=== PATIENT | female | born 1970 | race Caucasian/White ===

== ENCOUNTER 2019-02-17 15:09 | Inpatient (IN) | payer OTHER ==
[2019-02-17 15:52] VITALS: BMI 26.3
--- NOTE | 2019-02-17 17:57 | HP ---
"CIWA Score Nausea/Vomitin-Int. Nausea w/Dry Heave Muscle Tremors: 4-Moderate,w/Arms Extend Anxiety: 0-No Anxiety, at Ease Agitation: 4-Moderately Restless Paroxysmal Sweats: No Perspiration Orientation: 0-Oriented Tacttile Disturbances: 0-None Auditory Disturbances: 0-None Visual Disturbances: 0-None Headache: 0-None Present CIWA-Ar Total Score: 12 - Admission Criteria OASAS Guidelines: Admission for Medically Managed Detox: Requires at least one of the followin. CIWA greater than 12 2. Seizures within the past 24 hours 3. Delirium tremens within the past 24 hours 4. Hallucinations within the past 24 hours 5. Acute intervention needed for co occurring medical disorder 6. Acute intervention needed for co occurring psychiatric disorder 7. Severe withdrawal that cannot be handled at a lower level of care (continued vomiting, continued diarrhea, abnormal vital signs) requiring intravenous medication and/or fluids 8. Admission [facility] - [facility] Allergies/Adverse Reactions: Allergies Allergy/AdvReac Type Severity Reaction Status Date / Time No Known Allergies Allergy Verified 02/17/19 18:09 History of Present Illness: Search Terms: maureen hamlin, 1970 Search Date: 02/17/2019 05:51:03 PM The Drug Utilization Report below displays all of the controlled substance prescriptions, if any, that your patient has filled in the last twelve months. The information displayed on this report is compiled from pharmacy submissions to the Department, and accurately reflects the information as submitted by the pharmacies. This report was requested by: Shae Carter | Reference #: [id number] There are no results for the search terms that you entered. pt here requesting detox since age 32 , daily since 42's , currently 3 pints of vodka , occasionally beer as well , starts drinking in the morning to stop withdrawal symptoms, reports tremors , vomiting if not drinking, denies blackouts, had a fall while intoxicated 3 years ago had suture to head laceration , latest use today reports 10 am today , current BUCK 0.342 , brought in by delivery driver , in facility waiting area . denies illicts tobacco : denies PMHX : asthma dx childhood ( hospitalized in childhood, never intubated ), heart murmur ( PFO ) PShx : C-sx 1 , LMP 01/28/19 upt neg Psych : bipolar d/o - on Risperidone and Trazodone , denies current and past SI / HI Shx : lives w/ in half-way , on SSI for MH . 2 children ages 28 , and 18 lives w/ bio [employer] . Exam Limitations: Clinical Condition, Intoxication - Ebola screening Have you traveled outside of the country in the last 21 days: No Have you had contact with anyone from an Ebola affected area: No Have you been sick,other than usual withdrawal symptoms: No - Review of Systems Constitutional: See HPI EENT: reports: See HPI, Odynophagia Respiratory: reports: See HPI Cardiac: reports: No Symptoms Reported GI: reports: See HPI : reports: No Symptoms Reported Musculoskeletal: reports: No Symptoms Reported Integumentary: reports: Sweating Neuro: reports: Tremors, Unsteady Gait Endocrine: reports: No Symptoms Reported Psychiatric: reports: Orientated x3, Agitated Patient History - Patient Medical History Hx Anemia: No Hx Asthma: Yes Hx Chronic Obstructive Pulmonary Disease (COPD): No Hx Cancer: No Hx Cardiac Disorders: Yes (heart murmur) Hx Congestive Heart Failure: No Hx Hypertension: No Hx Hypercholesterolemia: No Hx Pacemaker: No HX Cerebrovascular Accident: No Hx Seizures: No Hx Dementia: No Hx Diabetes: No Hx Gastrointestinal Disorders: No Hx Liver Disease: No Hx Genitourinary Disorders: No Hx Sexually Transmitted Disorders: Yes (syphilis) Hx Renal Disease (ESRD): No Hx Thyroid Disease: No Hx Human Immunodeficiency Virus (HIV): No Hx Hepatitis C: No Hx Depression: Yes Hx Suicide Attempt: No Hx Bipolar Disorder: No Hx Schizophrenia: No - Patient Surgical History Past Surgical History: Yes Hx Neurologic Surgery: No Hx Cataract Extraction: No Hx Cardiac Surgery: No Hx Lung Surgery: No Hx Breast Surgery: No Hx Breast Biopsy: No Hx Abdominal Surgery: No Hx Appendectomy: No Hx Cholecystectomy: No Hx Genitourinary Surgery: No Hx Section: Yes (x 1) Hx Orthopedic Surgery: No Anesthesia Reaction: No - PPD History Date: 04/20/16 Results: 0 mm - Reproductive History Last Menstrual Period: 03/26/16 - Smoking Cessation Smoking history: Never smoked Have you smoked in the past 12 months: No Hx Chewing Tobacco Use: No - Substances Abused Alcohol Route: Oral Frequency: Daily Amount used: LIQUOR- 3 PINTS Age of first use: 19 Date of Last Use: 02/17/19 Family Disease History - Family Disease History Family Disease History: Diabetes: Mother (HTN), Brother (ALCOHOL), Heart Disease : Mother, Other: Father (ALCOHOL), Brother Admission Physical Exam S - Vital Signs Vital Signs: Vital Signs - 24 hr 02/17/19 15:49 Temperature 98.0 F Pulse Rate 83 Respiratory 20 Rate Blood Pressure 145/93 - Physical General Appearance: Yes: Disheveled, Moderate Distress HEENTM: Yes: EOMI, Hearing grossly Normal, Normocephalic, Normal Voice, Other ( poor dentition , caries and missing teeth) Respiratory: Yes: Chest Non-Tender, Lungs Clear, Normal Breath Sounds Neck: Yes: No masses,lesions,Nodules, Trachea in good position Cardiology: Yes: Regular Rhythm, Regular Rate, S1, S2, Tachycardia Abdominal: Yes: Non Tender, Soft Back: Yes: Normal Inspection Musculoskeletal: Yes: Other Extremities: Yes: Non-Tender, Tremors Neurological: Yes: Motor Strength 5/5, Depressed Affect Integumentary: Yes: Warm - Diagnostic (1) Alcohol intoxication Current Visit: Yes Status: Acute Qualifiers: Complication of substance-induced condition: uncomplicated Qualified Code(s ): F10.920 - Alcohol use, unspecified with intoxication, uncomplicated (2) Alcohol dependence with uncomplicated withdrawal Current Visit: Yes Status: Acute [facility] Breath Alcohol Content Breath Alcohol Content: 0.342 Urine Pregancy Test - Result Urine Test Results: Negative - NO line present Urine Drug Screen - Results Drug Screen Negative: No Urine Drug Screen Results: BZO-Benzodiazepines Inpatient Rehab Admission - Rehab Decision to Admit Inpatient rehab admission?: No"
[2019-02-17] MEDS ORDERED: TRIMETHOBENZAMIDE HCL 200MG/2ML INJ IM ONE (20:37)
--- NOTE | 2019-02-17 20:39 | PN ---
[facility] Progress Note Note: Patient vomited x 1 Vital Signs Temperature 98.0 F 02/17/19 15:49 Pulse Rate 83 02/17/19 15:49 Respiratory Rate 20 02/17/19 15:49 Blood Pressure 145/93 02/17/19 15:49 O2 Sat by Pulse Oximetry (%) Action: Tigan 200mg intramuscular ordered
[2019-02-17] MEDS ORDERED: hydrOXYzine PAMOATE 25 MG CAPSULE (FP) PO PRN (22:56)
[2019-02-17] MEDS ORDERED: MAGNESIUM HYDROX 2400MG/30ML ORAL SUSPENSION 30 ML CUP PO PRN (22:56)
[2019-02-17] MEDS ORDERED: METHOCARBAMOL 500 MG TABLET PO PRN (22:56)
[2019-02-17] MEDS ORDERED: MAGNESIUM CITRATE 300 ML BOTTLE PO PRN (22:56)
[2019-02-17] MEDS ORDERED: NICOTINE POLACRILEX 2 MG GUM BUC PRN (22:56)
[2019-02-17] MEDS ORDERED: BISMUTH SUBSALICYLATE 524 MG/30 ML UD PO PRN (22:56)
[2019-02-17] MEDS ORDERED: MAG HYDROX/AL HYDROX/SIMETH 30 ML UNIT-DOSE CUP PO PRN (22:56)
[2019-02-17] MEDS ORDERED: ACETAMINOPHEN 325 MG TABLET (FP) PO PRN ×2 (22:56)
[2019-02-17] MEDS ORDERED: IBUPROFEN 400 MG TABLET (FP) PO PRN (22:56)
[2019-02-17] MEDS ORDERED: MENTHOL/PHENOL 1 EACH UD MM PRN (22:56)
[2019-02-17] MEDS: chlordiazePOXIDE HCL 25 MG CAPSULE PO SCH (23:40)
[2019-02-17] MEDS: ALBUTEROL SO4 8 GM HFA INHALER IH SCH (23:41)
[2019-02-18] MEDS: chlordiazePOXIDE HCL 10 MG CAPSULE PO PRN ×3 (02:25→18:12)
[2019-02-18] MEDS: ALBUTEROL SO4 8 GM HFA INHALER IH SCH ×5 (03:09→22:42)
[2019-02-18] MEDS: chlordiazePOXIDE HCL 25 MG CAPSULE PO SCH ×2 (04:54→14:55)
[2019-02-18] MEDS ORDERED: cloNIDine HCL 0.1 MG TABLET PO ONE (07:45)
--- NOTE | 2019-02-18 07:53 | PN ---
S Progress Note Note: Patient's blood pressure is B/P 156/101. Patient is asymptomatic Vital Signs Temperature 97.9 F 02/18/19 07:49 Pulse Rate 87 02/18/19 07:49 Respiratory Rate 18 02/18/19 07:49 Blood Pressure 156/101 H 02/18/19 07:49 O2 Sat by Pulse Oximetry (%) ACTION: Clonidine 0.1mg 1 tablet oral daily
[2019-02-18] MEDS: PRENATAL VITAMINS W/ FOLIC ACID TABLET (FP) PO SCH (09:30)
[2019-02-18] MEDS ORDERED: ONDANSETRON *ODT* 4 MG TABLET SL ONE (10:03)
[2019-02-18] MEDS ORDERED: chlordiazePOXIDE HCL 25 MG CAPSULE PO ONE (10:05)
--- NOTE | 2019-02-18 10:23 | PN ---
S CIWA - CIWA Score Nausea/Vomitin Muscle Tremors: 4-Moderate,w/Arms Extend Anxiety: 4-Mod. Anxious/Guarded Agitation: 4-Moderately Restless Paroxysmal Sweats: 2 Orientation: 1-Uncertain about Date Tacttile Disturbances: 0-None Auditory Disturbances: 0-None Visual Disturbances: 0-None Headache: 0-None Present CIWA-Ar Total Score: 17 S Progress Note (SOAP) Subjective: patient admitted with alexis 0.354 had librium and tigan for alcohol withdrawal and vomiting vomited x 1 unable to tolerate food but fluid zofran 8 mg sl x 1 librium 50 mg po x 1 dose provide therapeutic environment for resting and safety Objective: 02/18/19 10:23 Vital Signs Temperature 98.7 F 02/18/19 09:16 Pulse Rate 90 02/18/19 09:16 Respiratory Rate 18 02/18/19 09:16 Blood Pressure 155/82 02/18/19 09:16 O2 Sat by Pulse Oximetry (%) lab pending Assessment: 02/18/19 10:24 alcohol withdrawal sx 02/18/19 10:24 hypertension Plan: continue detox begin lisinopril 10 mg po bid
[2019-02-18 10:43] LABS: HEMATOCRIT 36.3 % (32.4-45.2); HEMOGLOBIN 12.2 GM/dL (10.7-15.3); MCHC 33.5 g/dl (32.0-36.0); MEAN CELL VOLUME 98.4 fl (80-96); MEAN PLT VOLUME 8.8 fl (7.5-11.1); PLATELET COUNT 104 K/MM3 (134-434); RBC 3.69 M/mm3 (3.60-5.2); RDW 14.4 % (11.6-15.6); WHITE BLOOD COUNT 4.5 K/mm3 (4.0-10.0)
[2019-02-18 11:02] LABS: ALBUMIN 3.7 g/dl (3.4-5.0); ALK PHOS 103 U/L (45-117); ANION GAP 11 MMOL/L (8-16); BILIRUBIN,TOTAL 0.7 mg/dL (0.2-1); BLOOD UREA NITROGEN 6 mg/dL (7-18); CALCIUM 7.8 mg/dL (8.5-10.1); CHLORIDE 100 mmol/L (98-107); CO2 25 mmol/L (21-32); CREATININE 0.4 mg/dL (0.55-1.3); GLUCOSE,RANDOM 77 mg/dL (74-106); POTASSIUM 3.4 mmol/L (3.5-5.1); SGOT/AST 35 U/L (15-37); SGPT/ALT 25 U/L (13-61); SODIUM 136 mmol/L (136-145); TOT PROT 7.7 g/dl (6.4-8.2)
[2019-02-18] MEDS: LISINOPRIL 10 MG TABLET (FP) PO SCH ×2 (11:05→22:43)
[2019-02-18] MEDS: NICOTINE 14 MG/24 HOURS TOPICAL PATCH TD SCH (11:06)
[2019-02-18 12:17] LABS: RPR REACTIVE 1:4 (NONREACTIVE)
[2019-02-18 12:18] LABS: TREPONEMA ANTIBODY PREVIOUSLY REACTIVE (NONREACTIVE)
[2019-02-18] MEDS: cloNIDine HCL 0.1 MG TABLET PO PRN (18:12)
[2019-02-18] MEDS: THIAMINE HCL 100 MG TABLET (FP) PO SCH (22:42)
[2019-02-18] MEDS: chlordiazePOXIDE 5 MG CAPSULE PO SCH (22:42)
[2019-02-18] MEDS: ONDANSETRON *ODT* 4 MG TABLET SL PRN (22:43)
[2019-02-18] MEDS: MELATONIN 5 MG TABLETS PO PRN (22:44)
[2019-02-19] MEDS: chlordiazePOXIDE 5 MG CAPSULE PO SCH ×2 (05:17→13:33)
[2019-02-19] MEDS: ONDANSETRON *ODT* 4 MG TABLET SL PRN ×3 (05:19→17:51)
[2019-02-19] MEDS: ALBUTEROL SO4 8 GM HFA INHALER IH SCH ×5 (06:14→23:15)
[2019-02-19] MEDS: PRENATAL VITAMINS W/ FOLIC ACID TABLET (FP) PO SCH (10:23)
[2019-02-19] MEDS: LISINOPRIL 10 MG TABLET (FP) PO SCH ×2 (10:23→22:30)
[2019-02-19] MEDS: chlordiazePOXIDE HCL 10 MG CAPSULE PO PRN ×2 (10:23→19:46)
[2019-02-19] MEDS: NICOTINE 14 MG/24 HOURS TOPICAL PATCH TD SCH (10:23)
--- NOTE | 2019-02-19 18:06 | PN ---
S CIWA - CIWA Score Nausea/Vomitin Muscle Tremors: 4-Moderate,w/Arms Extend Anxiety: 3 Agitation: 1-Slight > Activity Paroxysmal Sweats: No Perspiration Orientation: 0-Oriented Tacttile Disturbances: 1-Very Mild Itch/Numbness Auditory Disturbances: 0-None Visual Disturbances: 1-Very Mild Sensitivity Headache: 0-None Present CIWA-Ar Total Score: 15 S Progress Note (SOAP) Subjective: Vomiting, Tremors, Anxious. Objective: PATIENT A & O X 3, OBSERVED AMBULATING ON UNIT. IN NO ACUTE DISTRESS. 02/19/19 18:07 Vital Signs Temperature 97.5 F L 02/19/19 13:00 Pulse Rate 98 H 02/19/19 13:00 Respiratory Rate 18 02/19/19 13:00 Blood Pressure 136/93 02/19/19 13:00 O2 Sat by Pulse Oximetry (%) Laboratory Tests 02/18/19 02/18/19 02/18/19 07:00 07:00 07:00 WBC 4.5 RBC 3.69 Hgb 12.2 Hct 36.3 MCV 98.4 H MCH 33.0 MCHC 33.5 RDW 14.4 Plt Count 104 L MPV 8.8 Sodium 136 Potassium 3.4 L Chloride 100 Carbon Dioxide 25 Anion Gap 11 BUN 6 L Creatinine 0.4 L Creat Clearance w eGFR 171.84 Random Glucose 77 Calcium 7.8 L Total Bilirubin 0.7 AST 35 ALT 25 Alkaline Phosphatase 103 Total Protein 7.7 Albumin 3.7 POC Urine HCG, Qual RPR Titer Reactive 1:4 H T.pallidum Ab (MHA) Previously reactive 02/18/19 08:50 WBC RBC Hgb Hct MCV MCH MCHC RDW Plt Count MPV Sodium Potassium Chloride Carbon Dioxide Anion Gap BUN Creatinine Creat Clearance w eGFR Random Glucose Calcium Total Bilirubin AST ALT Alkaline Phosphatase Total Protein Albumin POC Urine HCG, Qual Negative RPR Titer T.pallidum Ab (A) LABS NOTED. PATIENT HAS HAD LOW PLATELET LEVELS ON PREVIOUS ADMISSIONS. RPR NOTED TO BE REACTIVE 1:4 (MHA-TP: PREVIOUSLY REACTIVE). PATIENT REPORTS THAT SHE COMPLETED A FULL COURSE OF ANTIBIOTIC TREATMENT FOR SYPHILIS APPROX. 3 MONTHS AGO AT [facility] ([place], [place]). 02/19/19 19:26 Assessment: 02/19/19 18:11 WITHDRAWAL SYMPTOMS. THROMBOCYTOPENIA. HYPOCALCEMIA. HYPOKALEMIA. ELEVATED BLOOD PRESSURE. 02/19/19 18:13 Plan: CONTINUE DETOX. K-DUR, 40 MEQ PO X 1 NOW, THEN 20 MEQ PO BID FOR HYPOKALEMIA. OSCAL, 500 MG PO BID HYPOCALCEMIA. PRN CLONIDINE PO FOR ELEVATED BLOOD PRESSURE.
--- NOTE | 2019-02-19 18:28 | PN ---
[facility] Progress Note Note: Patient w/ (+) RPR. States wast treated for Syphillis about 3months ago w/ 3 injections.
[2019-02-19] MEDS ORDERED: POTASSIUM CHLORIDE TABS 20 MEQ TABLET.ER (FP) PO ONE (18:30)
[2019-02-19] MEDS: THIAMINE HCL 100 MG TABLET (FP) PO SCH (22:29)
[2019-02-19] MEDS: chlordiazePOXIDE HCL 10 MG CAPSULE PO SCH (22:29)
[2019-02-19] MEDS: CALCIUM (OYSTER SHELL) 500 MG TABLET (FP) PO SCH (22:29)
[2019-02-19] MEDS: MELATONIN 5 MG TABLETS PO PRN (22:32)
[2019-02-20] MEDS: ONDANSETRON *ODT* 4 MG TABLET SL PRN ×3 (01:27→23:12)
[2019-02-20] MEDS: cloNIDine HCL 0.1 MG TABLET PO PRN ×2 (02:29→14:29)
[2019-02-20] MEDS: chlordiazePOXIDE HCL 10 MG CAPSULE PO PRN ×2 (02:29→10:16)
[2019-02-20] MEDS: ALBUTEROL SO4 8 GM HFA INHALER IH SCH ×6 (02:53→23:58)
[2019-02-20] MEDS: chlordiazePOXIDE HCL 10 MG CAPSULE PO SCH ×3 (05:39→22:08)
[2019-02-20] MEDS: LISINOPRIL 10 MG TABLET (FP) PO SCH ×2 (10:15→23:08)
[2019-02-20] MEDS: POTASSIUM CHLORIDE TABS 20 MEQ TABLET.ER (FP) PO SCH ×2 (10:15→18:08)
[2019-02-20] MEDS: NICOTINE 14 MG/24 HOURS TOPICAL PATCH TD SCH (10:15)
[2019-02-20] MEDS: PRENATAL VITAMINS W/ FOLIC ACID TABLET (FP) PO SCH (10:15)
[2019-02-20] MEDS: CALCIUM (OYSTER SHELL) 500 MG TABLET (FP) PO SCH ×2 (10:15→23:08)
--- NOTE | 2019-02-20 10:26 | PN ---
[facility] Progress Note (SOAP) Subjective: vomit tremors Requesting to leave friday Objective: 02/20/19 10:23 A & O x 3 Anxious tremors Vital Signs Temperature 97.1 F L 02/20/19 06:10 Pulse Rate 56 L 02/20/19 06:10 Respiratory Rate 18 02/20/19 06:10 Blood Pressure 154/84 02/20/19 06:10 O2 Sat by Pulse Oximetry (%) Pt has HTN Assessment: 02/20/19 10:24 withdrawal sx Plan: continue detox Monitor clinical symptoms in a.m for possible discharge
--- NOTE | 2019-02-20 17:23 | PN ---
[facility] Progress Note Note: nausea,zofran 8 mgs sl now,close monitoring
[2019-02-20] MEDS ORDERED: ONDANSETRON *ODT* 4 MG TABLET SL ONE (17:45)
[2019-02-20] MEDS: THIAMINE HCL 100 MG TABLET (FP) PO SCH (23:07)
[2019-02-20] MEDS: MELATONIN 5 MG TABLETS PO PRN (23:10)
[2019-02-21] MEDS: ALBUTEROL SO4 8 GM HFA INHALER IH SCH ×2 (03:19→06:44)
[2019-02-21] MEDS: ONDANSETRON *ODT* 4 MG TABLET SL PRN (09:18)
[2019-02-21] MEDS: CALCIUM (OYSTER SHELL) 500 MG TABLET (FP) PO SCH (09:18)
[2019-02-21] MEDS: NICOTINE 14 MG/24 HOURS TOPICAL PATCH TD SCH (09:18)
[2019-02-21] MEDS: POTASSIUM CHLORIDE TABS 20 MEQ TABLET.ER (FP) PO SCH (09:18)
[2019-02-21] MEDS: PRENATAL VITAMINS W/ FOLIC ACID TABLET (FP) PO SCH (09:18)
[2019-02-21] MEDS: LISINOPRIL 10 MG TABLET (FP) PO SCH (09:18)
--- NOTE | 2019-02-21 09:28 | DS ---
[facility] Detox Discharge Summary Admission Date: 02/17/19 Discharge Date: 02/21/19 - History Present History: Alcohol Dependence Additional Comments: 48 years old female admitted on 02/17/19 for alcohol withdrawal stabilization completed detox regimen aftercare as per counselor arrangement Pertinent Past History: recommend chart picker potassium from pharmacy bring in medication list and lab report to follow up appointment - Physical Exam Results Vital Signs: Vital Signs Temperature 97.3 F L 02/21/19 06:36 Pulse Rate 70 02/21/19 06:36 Respiratory Rate 17 02/21/19 06:36 Blood Pressure 138/84 02/21/19 06:36 O2 Sat by Pulse Oximetry (%) Pertinent Admission Physical Exam Findings: alcohol withdrawal sx Laboratory Last Values WBC 4.5 K/mm3 (4.0-10.0) 02/18/19 07:00 RBC 3.69 M/mm3 (3.60-5.2) 02/18/19 07:00 Hgb 12.2 GM/dL (10.7-15.3) 02/18/19 07:00 Hct 36.3 % (32.4-45.2) 02/18/19 07:00 MCV 98.4 fl (80-96) H 02/18/19 07:00 MCH 33.0 pg (25.7-33.7) 02/18/19 07:00 MCHC 33.5 g/dl (32.0-36.0) 02/18/19 07:00 RDW 14.4 % (11.6-15.6) 02/18/19 07:00 Plt Count 104 K/MM3 (134-434) L 02/18/19 07:00 MPV 8.8 fl (7.5-11.1) 02/18/19 07:00 Sodium 136 mmol/L (136-145) 02/18/19 07:00 Potassium 3.4 mmol/L (3.5-5.1) L 02/18/19 07:00 Chloride 100 mmol/L (98-107) 02/18/19 07:00 Carbon Dioxide 25 mmol/L (21-32) 02/18/19 07:00 Anion Gap 11 MMOL/L (8-16) 02/18/19 07:00 BUN 6 mg/dL (7-18) L 02/18/19 07:00 Creatinine 0.4 mg/dL (0.55-1.3) L 02/18/19 07:00 Creat Clearance w eGFR 171.84 (>60) 02/18/19 07:00 Random Glucose 77 mg/dL (74-106) 02/18/19 07:00 Calcium 7.8 mg/dL (8.5-10.1) L 02/18/19 07:00 Total Bilirubin 0.7 mg/dL (0.2-1) 02/18/19 07:00 AST 35 U/L (15-37) 02/18/19 07:00 ALT 25 U/L (13-61) 02/18/19 07:00 Alkaline Phosphatase 103 U/L (45-117) 02/18/19 07:00 Total Protein 7.7 g/dl (6.4-8.2) 02/18/19 07:00 Albumin 3.7 g/dl (3.4-5.0) 02/18/19 07:00 POC Urine HCG, Qual Negative 02/18/19 08:50 RPR Titer Reactive 1:4 (NONREACTIVE) H 02/18/19 07:00 T.pallidum Ab (MHA) Previously reactive (NONREACTIVE) 02/18/19 07:00 lab noted low K+ low Ca++ - Treatment Hospital Course: Detox Protocol Followed, Detoxed Safely, Responded well, Discharged Condition Good, Rehab Referral Accepted Patient has Accepted a Rehab Referral to: as per counselor arrangement - Medication Discharge Medications: Ambulatory Orders Citalopram Hydrobromide [Celexa -] 10 mg PO DAILY #30 tablet 04/18/16 Risperidone [Risperdal -] 2 mg PO HS #30 tablet 04/18/16 traZODone HCL [Desyrel -] 100 mg PO HS #30 tablet 04/18/16 Albuterol Sulfate Inhaler - [Ventolin HFA Inhaler -] 2 inh PO Q4H #1 inhaler Potassium Chloride [K-Dur -] 40 meq PO ONCE #7 tablet.er 02/21/19 - Diagnosis (1) Alcohol dependence with uncomplicated withdrawal Status: Acute (2) Hypocalcemia Status: Chronic (3) Hypokalemia Status: Chronic - AMA Did Patient Leave Against Medical Advice: No
[2019-02-21 09:37] VITALS: BP 149/101; PULSE 99; TEMP 98.3
== END 2019-02-21 10:15 | disposition home or self-care (01) | DRG 775 ==
LOC: YASAS 15:09 → Y3N 18:18
PROVIDERS: ADMIT Surgery; ATTEND Surgery
PROC: HZ2ZZZZ Detoxification Services for Substance Abuse Treatment (ICD-10-PCS; principal; 2019-02-17)
DX: F10.230 Alcohol dependence with withdrawal, uncomplicated (principal); F31.9 Bipolar disorder, unspecified; E83.51 Hypocalcemia; D69.6 Thrombocytopenia, unspecified; E87.6 Hypokalemia; I10 Essential (primary) hypertension; Z86.19 Personal history of other infectious and parasitic diseases
CPT/HCPCS: 36415; 80053; 85027; 86593; 86780; J0735; Q0162